=== PATIENT | female | born 1960 | race Caucasian/White ===

== ENCOUNTER 2019-11-10 20:43 | Emergency (ER) | payer OTHER ==
[~2019-11-10] VITALS: Ht 162.6 cm; Wt 72.6 kg
[~2019-11-10 20:43] MED LIST: COZAAR25 MG PO; NUVARING VAGIN1 EACH VAGINAL
[2019-11-10] MEDS ORDERED: PLAQUENIL200 MG PO (21:59)
[2019-11-10] MEDS ORDERED: CABERGOLINE0.5 MG PO (21:59)
[2019-11-10] MEDS ORDERED: METOPROLOL TART25 MG PO (22:01)
[2019-11-10] MEDS ORDERED: ALEVE220 MG PO (22:02)
--- NOTE | 2019-11-11 15:53 | EKG ---
[facility] [address] [place] [address] Signed Sinus tachycardia Nonspecific ST abnormality Abnormal ECG No previous ECGs available Confirmed by QUINTIN HOPE DO ([id number]) on 11/11/2019 3:53:07 PM Electronically Signed By: QUINTIN HOPE DO 11/11/19 1553 PATIENT NAME: AHMET SANFORD EZRA Electrocardiogram DATE OF : 64 PHYSICIAN: QUINTIN HOPE DO REPORT #: [id number] REPORT IS CONFIDENTIAL AND NOT TO BE RELEASED WITHOUT AUTHORIZATION
--- NOTE | 2019-11-11 15:53 | EKG ---
[facility] [address] [place], [place] [address] Signed Wide QRS tachycardia Left axis deviation Left ventricular hypertrophy with QRS widening and repolarization abnormality Lateral infarct , age undetermined Inferior infarct , age undetermined Abnormal ECG No previous ECGs available Confirmed by QUINTIN HOPE DO ([id number]) on 11/11/2019 3:53:01 PM Electronically Signed By: QUINTIN HOPE DO 11/11/19 1553 PATIENT NAME: CLARIBELVANDANACHASITY MUNGUIA Electrocardiogram DATE OF : 64 PHYSICIAN: QUINTIN HOPE DO REPORT #: [id number] REPORT IS CONFIDENTIAL AND NOT TO BE RELEASED WITHOUT AUTHORIZATION
== END 2019-11-10 22:10 | disposition home or self-care (01) ==
LOC: ED 20:43
DX: I47.1 Supraventricular tachycardia (principal); I10 Essential (primary) hypertension; Z88.8 Allergy status to other drugs, medicaments and biological substances; Z79.899 Other long term (current) drug therapy
CPT/HCPCS: 71045; 80053; 83735; 84484; 85025; 93005; 93010; 96374; 99285-25; J0153